=== PATIENT | male | born 1985 | race Two or more races ===

== ENCOUNTER 2022-07-28 19:48 | Emergency (ER) | payer OTHER ==
[~2022-07-28] VITALS: Ht 180.3 cm; Wt 103.0 kg
[2022-07-28] MEDS ORDERED: CLIN300C8 PO (23:27)
[2022-07-28] MEDS ORDERED: IBUP800T27 PO (23:27)
[2022-07-28] MEDS ORDERED: PENICILLIN G POTASSIUM 2,500,000 UNITS in D5W 5% 50 ML IV ONE (23:30)
[2022-07-29] MEDS ORDERED: KETOROLAC TROMETH 60MG/2ML VIAL IM ONE
[2022-07-29] MEDS ORDERED: PENICILLIN G BENZ 1200000 UNITS/2 ML SYRG IM ONE (01:00)
[2022-07-29] MEDS ORDERED: PENICILLIN G POTASSIUM 2,500,000 UNITS in D5W 5% 50 ML IV ONE (01:15)
[2022-07-29] MEDS ORDERED: PENICILLIN G POT 5MILLION UNIT VIAL ONE (02:31)
[2022-07-29] MEDS ORDERED: STERILE WATER 10 ML ONE (02:32)
[2022-07-29 04:38] VITALS: BP 128/78
== END 2022-07-29 04:38 | disposition home or self-care (01) ==
LOC: ER 19:48
DX: S02.609A Fracture of mandible, unspecified, initial encounter for closed fracture (principal); Z88.6 Allergy status to analgesic agent; Y04.0XXA Assault by unarmed brawl or fight, initial encounter; Y93.89 Activity, other specified; Y92.89 Other specified places as the place of occurrence of the external cause; Y99.8 Other external cause status
CPT/HCPCS: 70450; 70486; 72125; 96365; 96372; 99285; J1885; J2540; J7060; J0561